=== PATIENT | male | born 1990 ===

== ENCOUNTER 2017-03-18 08:50 | Outpatient (CLI) | payer OTHER ==
--- NOTE | 2017-03-18 09:43 | XRay Report ---
RIGHT ANKLE THREE VIEWS: 03/18/17 08:50:00 CLINICAL: Injury and swelling. FINDINGS: The ankle mortise is intact. No fracture or dislocation. Soft tissue swelling at the lateral malleolus. No soft tissue air or foreign body. IMPRESSION: Lateral soft tissue swelling and otherwise normal.
== END 2017-03-18 08:51 | disposition home or self-care (01) ==
LOC: SPVIMAG 08:50
PROVIDERS: ATTEND Orthopaedic Surgery
DX: M25.471 Effusion, right ankle (principal)